=== PATIENT | male | born 1995 | race Caucasian/White ===

== ENCOUNTER 2017-06-04 16:14 | Emergency (ER) | payer OTHER ==
[2017-06-04] MEDS ORDERED: HYDROMORPHONE HCL INJ/PF 2 MG/ML AMPULE IV ONE (16:26)
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
[2017-06-04] MEDS ORDERED: PROPOFOL INJ 200 MG/20 ML VIAL IV ONE (16:48)
[2017-06-04] MEDS ORDERED: NORMAL SALINE 1000 ML 1,000 ML IV ONE (16:50)
[2017-06-04] MEDS ORDERED: FENTANYL CITRATE INJ/PF 100 MCG/2 ML AMPUL IV ONE (17:02)
--- NOTE | 2017-06-04 17:06 | RADIOLOGY REPORT (SQ) ---
EXAM DESCRIPTION: ELBOW LEFT OVER 2 VIEWS COMPLETED DATE/TIME: 06/04/2017 4:41 pm REASON FOR STUDY: bed 19 +deformity ?dislocation COMPARISON: None. NUMBER OF VIEWS: Three views. TECHNIQUE: AP lateral oblique radiographic images acquired of the left elbow. LIMITATIONS: None. FINDINGS: MINERALIZATION: Normal. BONES: Posterior dislocation of the radius and ulna with respect to the humerus. No obvious fracture . JOINT: No effusion. SOFT TISSUES: No soft tissue swelling. No foreign body. OTHER: No other significant finding. IMPRESSION: Elbow dislocation. TECHNICAL DOCUMENTATION: JOB ID: [id number] [employer]- All Rights Reserved
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
--- NOTE | 2017-06-04 18:06 | RADIOLOGY REPORT (SQ) ---
EXAM DESCRIPTION: ELBOW LEFT AP/LATERAL COMPLETED DATE/TIME: 06/04/2017 5:36 pm REASON FOR STUDY: post-reduction views COMPARISON: None. NUMBER OF VIEWS: One view. TECHNIQUE: Lateral radiographic images acquired of the left elbow. LIMITATIONS: None. FINDINGS: MINERALIZATION: Normal. BONES: Reduction of the previously noted dislocation. Possible radial head fracture. There is also a bone fragment seen through the head of the radius. Site of margin not clear. Possibly coronoid pr ocess of the ulnar. JOINT: No effusion. SOFT TISSUES: No soft tissue swelling. No foreign body. OTHER: No other significant finding. IMPRESSION: Reduction of the previously noted dislocation. Possible radial head fracture. Bone fra gments site of origin unclear but possibly is coronoid process of the ulnar. TECHNICAL DOCUMENTATION: JOB ID: [id number] [employer]- All Rights Reserved
[2017-06-04 19:01] VITALS: BP 121/85
== END 2017-06-04 19:09 | disposition home or self-care (01) ==
LOC: ER 16:14
PROC: 0PSJXZZ Reposition Left Radius, External Approach (ICD-10-PCS; principal; 2017-06-04)
DX: S52.125A Nondisplaced fracture of head of left radius, initial encounter for closed fracture (principal); S53.105A Unspecified dislocation of left ulnohumeral joint, initial encounter; V29.40XA Motorcycle driver injured in collision with unspecified motor vehicles in traffic accident, initial encounter
CPT/HCPCS: 99283; 96361; 99153; 99152; 96374; 73070; 73080; 24655; J3010; J1170; J7030

== ENCOUNTER → 2017-07-27 | Day surgery (SDC) | payer OTHER ==
--- NOTE | 2017-07-27 14:13 | RADIOLOGY REPORT (SQ) ---
EXAM DESCRIPTION: ARTHRO ELBOW INJECTION; FLUORO/NEEDLE PLACEMENT COMPLETED DATE/TIME: 07/27/2017 1:51 pm REASON FOR STUDY: OTHER DISLOCATION OF LEFT ULNOHUMERAL JOINT, INITIAL ENCOUNTER (S53.195A) S53.195A OTHER DISLOCATION OF LEFT ULNOHUMERAL JOINT, INIT E COMPARISON: Left elbow films 06/04/2017 FLUOROSCOPY TIME: 22 seconds 3 digital radiographic images saved to PACS. LIMITATIONS: None. PROCEDURE: Procedure, risks, benefits and alternatives explained to patient who then gave written c onsent. The left elbow was marked and a time-out was called for correct marking verification. Entry site marked using fluoroscopic guidance. Elbow prepped and draped using sterile technique. Local a nesthesia achieved using 1 mL of 1% lidocaine injection. 25 gauge needle introduced into the joint s pace under direct fluoroscopic visualization. Non-ionic contrast instilled to confirm intra-articula r position. Dilute gadolinium solution then injected. Needle removed and entry site covered with s terile bandage. No immediate complications noted. TECHNIQUE: Digital images acquired during fluoroscopy and stored on PACS. Patient immediately take n to the MR suite for additional imaging. INJECTION LOCATION: Radiohumeral joint CONTRAST TYPE AND AMOUNT: 1 mL of Isovue-300 injected to confirm intra-articular needle placement fol lowed by 3.5 mL of dilute ProHance gadolinium for MR arthrogram IMPRESSION: SUCCESSFUL NEEDLE PLACEMENT AND INJECTION FOR LEFT ELBOW MR ARTHROGRAM. COMMENT: Quality ID [id number]: Final reports for procedures using fluoroscopy that document radiation exp osure indices, or exposure time and number of fluorographic images (if radiation exposure indices are not available) TECHNICAL DOCUMENTATION: JOB ID: [id number] [employer]- All Rights Reserved
--- NOTE | 2017-07-27 15:40 | RADIOLOGY REPORT (SQ) ---
EXAM DESCRIPTION: MRI LT UPPER JOINT WITH COMPLETED DATE/TIME: 07/27/2017 2:17 pm REASON FOR STUDY: OTHER DISLOCATION OF LEFT ULNOHUMERAL JOINT, INITIAL ENCOUNTER (S53.195A) S53.195A OTHER DISLOCATION OF LEFT ULNOHUMERAL JOINT, INIT E COMPARISON: Elbow films 06/04/2017, arthrogram earlier today TECHNIQUE: Leftelbow images acquired and stored on PACS. Multiplanar images to include fat sensitive sequences as T1, fluid sensitive sequences as T2/STIR, cartilage sensitive sequences as FSPD, and co ntrast sensitive sequences as FST1. LIMITATIONS: None. FINDINGS: BONE MARROW: Hairline nondisplaced fracture radial head ventral for extending into the art icular surface. This is best shown on axial image 18, sagittal image 8 and coronal image 6. There is an avulsion fracture off the coronoid process tip of the ulna, nonunited bone fragment is be st shown on sagittal image 14 and coronal image 6. JOINT DISTENSION: Adequate MEDIAL COLLATERAL LIGAMENT COMPLEX: Grossly intact MEDIAL EPICONDYLE AND COMMON FLEXOR TENDON: Intact LATERAL COLLATERAL LIGAMENT: Torn LATERAL EPICONDYLE AND COMMON EXTENSOR TENDON: Intact LATERAL ULNAR COLLATERAL LIGAMENT: Torn BICEPS TENDON: Intact TRICEPS TENDON: Intact ULNAR NERVE: Normal signal ADJACENT SOFT TISSUES: No edema OTHER: No other significant finding. IMPRESSION: Post left elbow dorsal dislocation. Healed nondisplaced fracture anterior 3rd left radi al head. Nonunited avulsion fracture with free fragment off the coronoid process of the ulna. Lateral collateral ligament, lateral ulnar collateral ligament torn TECHNICAL DOCUMENTATION: JOB ID: [id number] [employer]- All Rights Reserved
== END ==
LOC: RAD 12:14
PROVIDERS: ATTEND Orthopaedic Surgery
DX: S53.195A Other dislocation of left ulnohumeral joint, initial encounter (principal); X58.XXXA Exposure to other specified factors, initial encounter
CPT/HCPCS: 73222; 77002; 24220; A9576

== ENCOUNTER 2017-10-03 11:06 | Day surgery (SDC) | payer OTHER ==
[2017-09-27 10:23] LABS: APPEARANCE,URINE CLEAR; BILIRUBIN,URINE NEGATIVE (NEGATIVE); COLOR,URINE STRAW; GLUCOSE, URINE NEGATIVE (NEGATIVE); KETONES,URINE NEGATIVE (NEGATIVE); LEUKOCYTE ESTERASE,URINE NEGATIVE (NEGATIVE); NITRITE,URINE NEGATIVE (NEGATIVE); PROTEIN,URINE NEGATIVE (NEGATIVE); URINE SPECIFIC GRAVITY 1.015; UROBILINOGEN,URINE NEGATIVE mg/dL (<2.0)
[2017-09-27 10:32] LABS: ABSOLUTE LYMPHOCYTES (AUTO) 1.2 10^3/uL (0.5-4.7); ABSOLUTE MONOCYTES (AUTO) 0.3 10^3/uL (0.1-1.4); ABSOLUTE NEUT (AUTO) 1.8 10^3/uL (1.7-8.2); BASOPHILS % (AUTO) 0.7 % (0-2); EOSINOPHILS % (AUTO) 1.2 % (0-6); HEMOGLOBIN 14.9 g/dL (13.5-17.0); LYMPHOCYTES % (AUTO) 35.4 % (13-45); MEAN CORPUSCULAR HEMOGLOBIN 30.6 pg (27.0-33.4); MEAN CORPUSCULAR HGB CONC 34.8 g/dL (32.0-36.0); MEAN CORPUSCULAR VOLUME 88 fl (80-97); MONOCYTES % (AUTO) 9.1 % (3-13); PLATELET COUNT 213 10^3/uL (150-450); RED BLOOD COUNT 4.89 10^6/uL (4.35-5.55); RED CELL DISTRIBUTION WIDTH 12.6 % (11.5-14.0); SEGMENTED NEUTROPHILS % (AUTO) 53.6 % (42-78); TOTAL CELLS COUNTED % (AUTO) 100 %; WHITE BLOOD COUNT 3.3 10^3/uL (4.0-10.5)
[2017-09-27 10:55] LABS: ANION GAP 10 (5-19); BLOOD UREA NITROGEN 14 mg/dL (7-20); CALCIUM 10.2 mg/dL (8.4-10.2); CARBON DIOXIDE 30 mmol/L (22-30); CHLORIDE 103 mmol/L (98-107); GLUCOSE 89 mg/dL (75-110); POTASSIUM 4.8 mmol/L (3.6-5.0)
--- NOTE | 2017-09-27 23:14 | EKG REPORT ---
SEVERITY:- BORDERLINE ECG - SINUS RHYTHM BORDERLINE Q WAVES IN INFERIOR LEADS INFERIOR Q WAVES, PROBABLY NORMAL VARIATION : Confirmed by: Eulogio Syed 27-Sep-2017 23:13:32
[~2017-10-03 11:06] MED LIST: CEFAZOLIN 2 GM/D5W RTU 2 GM/50 ML RTUPB IV PRN; LACTATED RINGERS 1000 ML IV PRN; LIDOCAINE 0.5% INJ-PF (5 MG/ML) 50 ML SDV SUBCUT PRN
[2017-10-03] MEDS ORDERED: LIDOCAINE 2% INJ-PF (20 MG/ML) 10 ML AMPUL ONE (13:16)
[2017-10-03] MEDS ORDERED: FENTANYL CITRATE INJ/PF 100 MCG/2 ML AMPUL ONE ×4 (13:16→13:54)
[2017-10-03] MEDS ORDERED: HYDROMORPHONE HCL INJ/PF 2 MG/ML AMPULE ONE (13:17)
[2017-10-03] MEDS ORDERED: MIDAZOLAM 2 MG/2 ML INJ ONE ×2 (13:17→13:55)
[2017-10-03] MEDS ORDERED: ACETAMINOPHEN 0 ML IV ONE (13:17)
[2017-10-03] MEDS ORDERED: ONDANSETRON HCL INJ/PF 4 MG/2 ML SDV ONE (13:17)
[2017-10-03] MEDS ORDERED: PROPOFOL INJ 200 MG/20 ML VIAL IV ONE ×2 (13:17→13:55)
[2017-10-03] MEDS ORDERED: ACETAMINOPHEN 100 ML IV ONE (13:55)
[2017-10-03] MEDS ORDERED: MORPHINE SULFATE 10 MG/ML INJ ONE (13:55)
[2017-10-03] MEDS ORDERED: BUPIVACAINE HCL 0.25 % INJ/PF (2.5 MG/1 ML) 30 ML VIAL ONE (14:17)
[2017-10-03] MEDS ORDERED: DIPHENHYDRAMINE HCL 50 MG/ML VIAL IV PRN (14:53)
[2017-10-03] MEDS ORDERED: PROMETHAZINE HCL INJ 25 MG/1 ML VIAL IV PRN ×2 (14:53)
[2017-10-03] MEDS ORDERED: MEPERIDINE HCL/PF INJ 25 MG/1 ML DISP.SYRIN IV PRN (14:53)
[2017-10-03] MEDS ORDERED: OXYCODONE-ACETAMINOPHEN 5-325 MG TABLET PO PRN ×3 (14:53→15:44)
[2017-10-03] MEDS ORDERED: MORPHINE SULFATE 10 MG/ML INJ IV PRN ×2 (14:53→15:44)
[2017-10-03] MEDS ORDERED: FENTANYL CITRATE INJ/PF 100 MCG/2 ML AMPUL IV PRN ×3 (14:53)
[2017-10-03] MEDS ORDERED: ONDANSETRON HCL INJ/PF 4 MG/2 ML SDV IV PRN (15:44)
--- NOTE | 2017-10-03 15:44 | PDOC DISCHARGE SUMMARY ---
Discharge Summary (SDC) - Discharge Final Diagnosis: Left Posterolateral Rotatory Instability Date of Surgery: 10/03/17 Discharge Date: 10/03/17 Condition: Good Treatment or Instructions: Schedule Follow Up w/ Dr. Kevin Vegas @ [facility] to be seen in 10-14 days or as scheduled [place]: [place]: [employer]: Ice and elevate Keep splint clean/dry/intact. If your fingers become numb please unwrap the Byron wrap but leave the splint in place, if the sensation does not return within 30 minutes please return to the emergency department. May begin finger range of motion attempting to make full fist. Please use ibuprofen (Motrin or Advil) 600-800 mg every 8 hours as needed for pain or fever. You may also use acetaminophen (Tylenol) 1000 mg every 4-6 hours as needed for pain or fever. Please be aware that many medications contain acetaminophen, do not exceed a total of 1000 mg of acetaminophen every 6 hours. If ibuprofen and acetaminophen are not sufficient for your pain you may take the Percocet. Please be aware that the Percocet does contain Tylenol. Stool softener of choice when on pain medication. Prescriptions: Ketorolac Tromethamine [Toradol 10 mg Tablet] 10 mg PO Q8HP PRN #10 tablet PRN Reason: Oxycodone HCl/Acetaminophen [Percocet 5-325 mg Tablet] 1 - 2 tab PO ASDIR PRN # 35 tablet PRN Reason: Discharge Activity: No Lifting Over 10 Pounds, No Lifting/Push/Pulling Report the Following to Your Physician Immediately: Fever over 101 Degrees, Unusual Bleeding, Redness, Swelling, Warmth, Increased Soreness
--- NOTE | 2017-10-03 15:52 | Operative Report ---
Operative Report DATE OF SURGERY: 10/03/17 PREOPERATIVE DIAGNOSIS: Left Posterolateral Rotatory Instability POSTOPERATIVE DIAGNOSIS: Same OPERATION: Left LUCL Reconstruction w/ Allograft SURGEON: GE SUAREZ ANESTHESIA: GA COMPLICATIONS: None ESTIMATED BLOOD LOSS: Minimal PROCEDURE: Indication for above procedure: 22-year-old male who sustained a left elbow dislocation. He underwent closed reduction and therapy but continued to have feelings of instability and weakness. MRI demonstrated lateral ulnar collateral ligament disruption. At that point we discussed treatment options including operative versus nonoperative intervention risks and benefits were explained to the patient patient verbalized understanding consented for the procedure. Procedure In Detail: Patient was seen and evaluated in the preoperative holding area. The Left upper extremity was initialized and marked. Patient received 2g of Ancef IV for bacterial prophylaxis. Patient was taken back to the operative room where transferred to the operative table and placed under general anesthesia. Once they were adequately anesthetized a nonsterile tourniquet was placed on the upper extremity. A surgical team debriefing was performed ensuring all instrumentation was available, the surgical procedure was discussed with possible concerns reviewed. The upper extremity was prepped with ChloraPrep and draped in a sterile fashion. A timeout was done identifying correct patient, procedure and extremity everyone in attendance agree with this and verbalized no concerns. The extremity was exsanguinated the tourniquet was inflated to 250 mmHg. Oblique skin incision was made centered over the lateral elbow. Blunt dissection was performed and the interval between the ECU/anconeus was located. I then carefully split the fascia. With a maurice elevator the insertion of the lateral ulnar collateral ligament was identified. There was notable laxity of the lateral ulnar collateral ligament. I then exposed the lateral ulnar collateral ligament origin at its isometric point. With C-arm fluoroscopy I confirmed placement of my K wire within the isometric point on a perfect lateral of the elbow. Once the insertion and origin were confirmed I prepared a posterior tibial allograft on the back table to fit a 3.5 mm tunnel. The distal end was by allograft was whipstitched. The insertion was drilled and the graft placed within the ulna with a 3.5 mm swivel lock anchor. The origin was then drilled and tapped. I measured to the origin at the lateral epicondyle isometric point and measured 15 mm further this was where my graft was cut to allow 15 mm of graft within the humeral tunnel. The remaining FiberWire sutures from the ulnar insertion was then loaded in the 3.5 mm swivel lock to act as a internal brace. The graft was then talked within the lateral epicondyle with the elbow 45 of flexion. There is good stability and appropriate tension of my lateral ulnar collateral ligament reconstruction. Tension remained equal throughout elbow range of motion confirming placement at the isometric point. The wound was then copiously irrigated with normal saline. Remanent lateral ulnar collateral ligament was repaired with #2 FiberWire. The fascia was closed with interrupted 0 Vicryl suture. Subcu tissues closed with 3-0 Monocryl. Skin was closed with a running subcuticular 4-0 Monocryl reinforced with Dermabond and Steri-Strips. 30 cc of 0.25% Marcaine without epinephrine was injected for postoperative pain control. Patient was placed in a posterior plaster splint with the elbow at 45 of flexion. Sponge counts, instrument counts, needle counts counts were correct. Patient was then awoken from anesthesia. Transferred from the operating room table to the operating room stretcher. There was no intraoperative complications patient tolerated procedure well stable to PACU. Postoperative plan: Patient will follow-up the office in 2 weeks for wound check. Will begin physical therapy 4 weeks postoperatively. I will allow him to begin elbow range of motion from 45 of flexion to 90 of flexion in a hinged elbow brace. Then begin as per L ACL protocol.
[2017-10-03] MEDS: FENTANYL CITRATE INJ/PF 100 MCG/2 ML AMPUL ONE ×2 (16:26→16:33)
[2017-10-03 19:05] VITALS: BP 119/81
--- NOTE | 2017-10-04 09:39 | RADIOLOGY REPORT (SQ) ---
EXAM DESCRIPTION: ELBOW LEFT AP/LATERAL; NO CHG FLUORO COMPLETED DATE/TIME: 10/03/2017 11:03 pm REASON FOR STUDY: LT ELBOW LIGAMENT REPAIR S53.432D RADIAL COLLATERAL LIGAMENT SPRAIN OF LEFT ELBOW , RASMUSSEN COMPARISON: MRI 07/27/2017 FLUOROSCOPY TIME: 0.4 minutes 3 digital C-arm images saved to PACS. TECHNIQUE: Intra-operative images acquired during surgical procedure to evaluate progress. NUMBER OF IMAGES: 3 digital C-arm images LIMITATIONS: None. FINDINGS: Intra procedural imaging and fluoro during surgery on the left elbow. Please see the oper ative report for further details IMPRESSION: Intra procedural imaging and fluoro COMMENT: Quality ID [id number]: Final reports for procedures using fluoroscopy that document radiation exp osure indices, or exposure time and number of fluorographic images (if radiation exposure indices are not available) Please consult full operative report of the attending physician for description of the procedure. TECHNICAL DOCUMENTATION: JOB ID: [id number] [employer]- All Rights Reserved
--- NOTE | 2017-10-04 09:39 | RADIOLOGY REPORT (SQ) ---
EXAM DESCRIPTION: ELBOW LEFT AP/LATERAL; NO CHG FLUORO COMPLETED DATE/TIME: 10/03/2017 11:03 pm REASON FOR STUDY: LT ELBOW LIGAMENT REPAIR S53.432D RADIAL COLLATERAL LIGAMENT SPRAIN OF LEFT ELBOW , RASMUSSEN COMPARISON: MRI 07/27/2017 FLUOROSCOPY TIME: 0.4 minutes 3 digital C-arm images saved to PACS. TECHNIQUE: Intra-operative images acquired during surgical procedure to evaluate progress. NUMBER OF IMAGES: 3 digital C-arm images LIMITATIONS: None. FINDINGS: Intra procedural imaging and fluoro during surgery on the left elbow. Please see the oper ative report for further details IMPRESSION: Intra procedural imaging and fluoro COMMENT: Quality ID [id number]: Final reports for procedures using fluoroscopy that document radiation exp osure indices, or exposure time and number of fluorographic images (if radiation exposure indices are not available) Please consult full operative report of the attending physician for description of the procedure. TECHNICAL DOCUMENTATION: JOB ID: [id number] [employer]- All Rights Reserved
== END 2017-10-03 18:35 | disposition home or self-care (01) ==
LOC: OROUT 11:06
PROVIDERS: ATTEND Orthopaedic Surgery
PROC: 0MU Bursae and Ligaments, Supplement (ICD-10-PCS; principal; 2017-10-03 13:15)
DX: S53.432A Radial collateral ligament sprain of left elbow, initial encounter (principal); V86.96XA Unspecified occupant of dirt bike or motor/cross bike injured in nontraffic accident, initial encounter
CPT/HCPCS: 93005; 36415; 85025; 80048; 81001; 73070; 93010; 24344; J2250; J3010; J1170; J2405; J2704; J3490; J0690; J0131; 01740; J2270